=== PATIENT | male | born 1955 | race African-American/Black ===

== ENCOUNTER → 2020-05-25 | Outpatient (CLI) | payer MEDICARE | END | disposition home or self-care (01) | LOC: RADPV 11:04 | PROVIDERS: ATTEND Internal Medicine Geriatric Medicine | DX: M50.30 Other cervical disc degeneration, unspecified cervical region (principal); M40.294 Other kyphosis, thoracic region; M25.78 Osteophyte, vertebrae | CPT/HCPCS: 72072; 72100 ==

== ENCOUNTER → 2021-05-28 | Outpatient (CLI) | payer MEDICARE, OTHER ==
[2021-05-30 08:06] LABS: QUANTIFERON, TB GOLD PLUS Negative (Negative)
== END | disposition home or self-care (01) ==
LOC: LABPV 10:08
PROVIDERS: ATTEND Internal Medicine Geriatric Medicine
DX: R76.11 Nonspecific reaction to tuberculin skin test without active tuberculosis (principal)
CPT/HCPCS: 86480